=== PATIENT | female | born 1940 | race Caucasian/White ===

== ENCOUNTER 2019-11-09 12:02 | Outpatient (CLI) | payer MEDICARE, OTHER, SELFPAY ==
--- NOTE | ~2019-11-09 | CT_ITS ---
EXAMINATION: CT soft tissue neck chest w DATE: 11/09/2019 14:40 INDICATION: Neck pain. Tremors. TECHNIQUE: Computed tomography (CT) of the neck and chest was performed with 75 mL Omnipaque-350 intr avenous contrast. Automated exposure control and iterative reconstruction technique were employed. Th e dose-length product was 1098.18 mGy-cm. COMPARISON: None FINDINGS: NECK CT: There are likely changes of ocular lens replacement surgeries. There are no pathologically e nlarged lymph nodes. There is plaque in the proximal internal carotid arteries with less than 50% felipe nosis relative to normal distal artery lumen diameters. There is moderate cervical spondylosis. CHEST CT: There is mild atelectasis bilaterally. Calcified pulmonary nodules and calcified hilar and mediastinal lymph nodes are consistent with old granulomatous disease. There is a 5 mm nodule in righ t lung lower lobe, likely benign. No pleural effusion. The heart size is normal. There are coronary a rtery calcifications. There are calcifications of the aortic valve. No pericardial effusion. There is a small sliding hiatal hernia. Calcifications in the liver and spleen are consistent with old granul omatous disease. There is mild thoracic spondylosis. IMPRESSION: 1. Small sliding hiatal hernia. Reviewed, dictated and finalized at location E.
--- NOTE | 2019-11-09 13:30 | NEURO_ITS ---
TEST: ELECTROENCEPHALOGRAM DIAGNOSIS: TREMORS PATIENT NUMBER: [id number] EEG NUMBER: [id number] RECORDING DATE: 11/09/19 CLINICAL HISTORY: Patient reports she has been having uncontrollable shaking of her right arm. CONDITION OF RECORDING: Awake, drowsy and sleep EEG DESCRIPTION: Basic resting occipital frequency consists of small amount of poorly organized low voltage 9-11hz alpha mixed with low voltage 15-21hz beta. During drowsiness low voltage beta activity is seen diffusely mixed with waxing and waning posterior alpha rhythms and intermittent low voltage 6-7hz theta. Bilateral symmetrical sleep activity is seen during sleep. Photic stimulation produced normal drive. Nonparoxysmal. Nonfocal. Nonlateralizing. IMPRESSION: No significant abnormalities noted. [facility]
[2019-11-09 14:25] LABS: Estimated Glomerular Filt Rate > 60
== END 2019-11-09 12:03 | disposition home or self-care (01) ==
PROVIDERS: Visit Provider Family Medicine
DX: R25.1 Tremor, unspecified (principal); G40.209 Localization-related (focal) (partial) symptomatic epilepsy and epileptic syndromes with complex partial seizures, not intractable, without status epilepticus; K44.9 Diaphragmatic hernia without obstruction or gangrene
CPT/HCPCS: 36415; 70491; 71260; 95816; Q9967

== ENCOUNTER 2020-02-01 09:12 | Outpatient (CLI) | payer MEDICARE, OTHER, SELFPAY ==
--- NOTE | 2020-02-01 11:00 | NEURO_ITS ---
Patient Number: [id number] Impression: # Complains of numbness and tremors. # Right Carpal Tunnel Syndrome. # Resting tremor noted during study; possible parkinsonism. # No ulnar neuropathy. # Normal needle/EMG exam. Nerve Conduction Studies Anti Sensory Summary Table Stim Site NR Peak (ms) P-T Amp (?V) Site1 Site2 Delta-P (ms) Dist (cm) Jay (m/s) Left Median Anti Sensory (2-3nd Digit) Wrist 2.9 43.7 Wrist 2-3nd Digit 2.9 14.0 48 Wrist 2.9 47.7 Wrist 2-3nd Digit 2.9 14.0 48 Right Median Anti Sensory (2-3nd Digit) Wrist 2.7 22.3 Wrist 2-3nd Digit 2.7 14.0 52 Wrist 3.0 23.4 Wrist 2-3nd Digit 2.7 14.0 52 Left Radial Anti Sensory (Base 1st Digit) Wrist 2.8 9.1 Wrist Base 1st Digit 2.8 0.0 Right Radial Anti Sensory (Base 1st Digit) Wrist 2.8 22.1 Wrist Base 1st Digit 2.8 0.0 Left Ulnar Anti Sensory (5th Digit) Wrist 2.8 17.6 Wrist 5th Digit 2.8 14.0 50 Right Ulnar Anti Sensory (5th Digit) Wrist 2.3 19.3 Wrist 5th Digit 2.3 14.0 61 Motor Summary Table Stim Site NR Onset (ms) O-P Amp (mV) Site1 Site2 Delta-0 (ms) Dist (cm) Jay (m/s) Left Median Motor (Abd Poll Brev) Wrist 3.4 1.7 Elbow Wrist 5.5 30.0 55 Elbow 8.9 2.7 Right Median Motor (Abd Poll Brev) Wrist 4.2 1.7 Elbow Wrist 5.2 29.0 56 Elbow 9.4 1.7 ELB/ADM Wrist 9.6 0.0 Left Ulnar Motor (Abd Dig Minimi) Wrist 2.6 6.0 A Elbow Wrist 5.5 30.0 55 A Elbow 8.1 2.6 Right Ulnar Motor (Abd Dig Minimi) Wrist 2.8 3.9 A Elbow Wrist 5.0 29.0 58 A Elbow 7.8 2.9 F Wave Studies NR F-Lat (ms) L-R F-Lat (ms) Left Median (Mrkrs) (Abd Poll Brev) 27.76 0.43 Right Median (Mrkrs) (Abd Poll Brev) 27.33 0.43 Left Ulnar (Mrkrs) (Abd Dig Min) 28.80 0.36 Right Ulnar (Mrkrs) (Abd Dig Min) 28.44 0.36 EMG Side Muscle Nerve Root Ins Act Fibs Amp Dur Recrt Comment Right 1stDorInt Ulnar C8-T1 Nml Nml Nml Nml Nml Right Ext Indicis Radial (Post Int) C7-8 Nml Nml Nml Nml Nml Right Ext Digitorum Radial (Post Int) C7-8 Nml Nml Nml Nml Nml Right BrachioRad Radial C5-6 Nml Nml Nml Nml Nml Right PronatorTeres Median C6-7 Nml Nml Nml Nml Nml Right Abd Poll Brev Median C8-T1 Nml Nml Nml Nml Nml Left 1stDorInt Ulnar C8-T1 Nml Nml Nml Nml Nml Left Ext Indicis Radial (Post Int) C7-8 Nml Nml Nml Nml Nml Left Ext Digitorum Radial (Post Int) C7-8 Nml Nml Nml Nml Nml Left BrachioRad Radial C5-6 Nml Nml Nml Nml Nml Left PronatorTeres Median C6-7 Nml Nml Nml Nml Nml Left Abd Poll Brev Median C8-T1 Nml Nml Nml Nml Nml Right ABD Dig Min Ulnar C8-T1 Nml Nml Nml Nml Nml Left ABD Dig Min Ulnar C8-T1 Nml Nml Nml Nml Nml MTDD
== END 2020-02-01 09:13 | disposition home or self-care (01) ==
PROVIDERS: PCP Family Medicine; Visit Provider Family Medicine
DX: R25.1 Tremor, unspecified (principal); M54.2 Cervicalgia; G56.01 Carpal tunnel syndrome, right upper limb
CPT/HCPCS: 95886; 95911